=== PATIENT | male | born 1990 | race American Indian/Alaskan Native ===

== ENCOUNTER 2018-11-21 15:07 | Emergency (ER) | payer OTHER ==
[2018-11-21 15:21] VITALS: BP 108/72
[2018-11-21] MEDS ORDERED: NORCO 5/325 PO STA (16:26)
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
== END 2018-11-21 18:40 | disposition left against medical advice (07) ==
LOC: ED 15:07
DX: M54.2 Cervicalgia (principal); R07.89 Other chest pain; M79.602 Pain in left arm; F17.200 Nicotine dependence, unspecified, uncomplicated; V89.2XXA Person injured in unspecified motor-vehicle accident, traffic, initial encounter; Y93.89 Activity, other specified; Y92.488 Other paved roadways as the place of occurrence of the external cause; Y99.8 Other external cause status
CPT/HCPCS: 71046; 72040; 99283

== ENCOUNTER 2021-07-19 18:45 | Emergency (ER) | payer SELFPAY ==
[2021-07-19 18:57] VITALS: BP 124/85
== END 2021-07-19 20:22 | disposition left against medical advice (07) ==
LOC: ED 18:45
DX: Z00.00 Encounter for general adult medical examination without abnormal findings (principal); Z53.21 Procedure and treatment not carried out due to patient leaving prior to being seen by health care provider